=== PATIENT | male | born 1970 | race Caucasian/White ===

== ENCOUNTER 2016-08-21 10:11 | Emergency (ER) | payer OTHER ==
--- NOTE | 2016-09-01 10:04 | ED MED RECONCILIATION SUMMARY ---
Patient: CRYSTAL GONZALEZ Medication Reconciliation Report [facility] VisitID: [id number] [address] [place] [address] 46y, M Registration Date/Time: 08/21/2016 Weight: 90.7 kg Height/Length: 69 in. BMI: 29.5 ALLERGIES: No Known Drug Allergy The patient's Home Medications are listed below: NONE. The source(s) of the original Home Medication information: Not obtained. The following Medications were given to the patient in the Emergency Department: Acetaminophen [PO] PO 1000 mg, administered: 08/21/2016 2:56:00 PM NICOTINE [TOPICAL] Topical 21 mg, administered: 08/21/2016 8:41:00 PM Acetaminophen [PO] PO 1000 mg, administered: 08/21/2016 9:08:00 PM Toradol [IM] IM 60 mg, administered: 08/22/2016 2:22:00 AM The following Medications were prescribed to the patient: None.
--- NOTE | 2016-09-01 10:04 | ED MAR SUMMARY ---
..... Medication Administration Record [facility] [address] [place] [address] Patient: CRYSTAL GONZALEZ Visit ID: [id number] 46y, M Weight: 90.7 kg Height/Length: 69 in BMI: 29.5 ALLERGIES: No Known Drug Allergy Given 14:56 08/21/2016 Sheriff Butterfield R.N. Medication Administered: ACETAMINOPHEN [PO] (APAP), Dose: 1000 mg Tablets PO. Medication Ordered: Acetaminophen PO 1,000 mg (NOW). Given 20:41 08/21/2016 Sheriff Butterfield R.N. Medication Administered: NICOTINE [TOPICAL], Dose: 21 mg Topical. Medication Ordered: Nicotine Topical 21 mg (NOW). Given 21:08 08/21/2016 Sheriff Butterfield R.N. Medication Administered: ACETAMINOPHEN [PO] (APAP), Dose: 1000 mg PO. Medication Ordered: Acetaminophen PO 1,000 mg (NOW). Given 02:22 08/22/2016 Lizzeth Nayak R.N. Medication Administered: TORADOL [IM] (KETOROLAC TROMETHAMINE), Dose: 60 mg IM. Medication Ordered: Toradol IM 60 mg (NOW).
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
--- NOTE | 2016-09-01 10:04 | ED ORDER SUMMARY ---
..... Patient: CRYSTAL GONZALEZ OrderSheet [facility] VisitID: [id number] [address] [place] [address] 46y, M Registration Date/Time: 08/21/2016 ORDER SHEET Weight: 90.7 kg (stated) Allergies: No Known Drug Allergy GENERAL ORDERS: CBC w Diff Urgent (10:39 08/21/2016 Julissa GARZA) (Ack 10:51 LNations ER Tech1) (18:42 LNations ER Tech1) CMP Urgent (10:39 08/21/2016 Julissa GARZA) (Ack 10:51 LNations ER Tech1) (18:42 LNations ER Tech1) UA-Culture if indicated Urgent (10:08/21/2016 Julissa GARZA) (Ack 10:51 LNations ER Tech1) (18:42 LNations ER Tech1) Amylase Urgent (10:08/21/2016 Julissa GARZA) (Ack 10:52 LNations ER Tech1) (18:42 LNations ER Tech1) Lipase Urgent (10:39 08/21/2016 Julissa GARZA) (Ack 10:52 LNations ER Tech1) (18:42 LNations ER Tech1) Ethyl Alcohol Urgent (10:39 08/21/2016 Julissa GARZA) (Ack 10:52 LNations ER Tech1) (18:42 LNations ER Tech1) Urine Drug Screen Urgent (10:08/21/2016 Julissa GARZA) (Ack 10:52 LNations ER Tech1) (18:42 LNations ER Tech1) Acetaminophen Level Urgent (10:39 08/21/2016 Julissa GARZA) (Ack 10:53 LNations ER Tech1) (18:42 LNations ER Tech1) Salicylate Level Urgent (10:39 08/21/2016 Julissa GARZA) (Ack 10:53 LNations ER Tech1) (18:42 LNations ER Tech1) Suicide Precautions (10:39 08/21/2016 Julissa GARZA) (Ack 10:53 LNations ER Tech1) (18:42 LNations ER Tech1) EKG - ER Stat (10:42 08/21/2016 Julissa GARZA) (Ack 10:53 LNations ER Tech1) (10:53 LNations ER Tech1) CBC w Manual Diff Urgent (21:22 08/21/2016 AMcQuoid ER Tech1 verbal order read back to Julissa GARZA) (Ack 21:23 AMcQuoid ER Tech1) (23:10 AMcQuoid ER Tech1) MEDICATION ORDERS: Acetaminophen PO 1,000 mg (NOW) (14:30 08/21/2016 Julissa GARZA) (14:56 SSambou R.N.) Nicotine Topical 21 mg (NOW) (17:24 08/21/2016 Julissa GARZA) (Ack 17:41 JBoardley R.N.) (21:07 SSambou R.N.) Acetaminophen PO 1,000 mg (NOW) (21:07 08/21/2016 SSambou R.N. verbal order read back to Julissa AGRZA) (21:08 SSambou R.N.) Toradol IM 60 mg (NOW) (01:40 08/22/2016 Jian Mejias) (Ack 2:18 JSanders R.N.) (2:22 JSanders R.N.) IV FLUIDS: ORDER SHEET NOTES: [Electronically signed by Norm Beauchamp R.N. (07:08 08/24/2016)] [Electronically signed by Chelsea Tse MD (10:04 09/01/2016)] [Electronically locked/signed by Norm Beauchamp R.N. (07:08 08/24/2016)]
--- NOTE | 2016-09-01 10:04 | ED ORDER SUMMARY ---
..... Patient: CRYSTAL GONZALEZ OrderSheet [facility] VisitID: [id number] [address] [place] [address] 46y, M Registration Date/Time: 08/21/2016 ORDER SHEET Weight: 90.7 kg (stated) Allergies: No Known Drug Allergy GENERAL ORDERS: CBC w Diff Urgent (10:39 08/21/2016 Julissa GARZA) (Ack 10:51 LNations ER Tech1) (18:42 LNations ER Tech1) CMP Urgent (10:39 08/21/2016 Julissa GARZA) (Ack 10:51 LNations ER Tech1) (18:42 LNations ER Tech1) UA-Culture if indicated Urgent (10:08/21/2016 Julissa GARZA) (Ack 10:51 LNations ER Tech1) (18:42 LNations ER Tech1) Amylase Urgent (10:08/21/2016 Julissa GARZA) (Ack 10:52 LNations ER Tech1) (18:42 LNations ER Tech1) Lipase Urgent (10:39 08/21/2016 Julissa GARZA) (Ack 10:52 LNations ER Tech1) (18:42 LNations ER Tech1) Ethyl Alcohol Urgent (10:39 08/21/2016 Julissa GARZA) (Ack 10:52 LNations ER Tech1) (18:42 LNations ER Tech1) Urine Drug Screen Urgent (10:08/21/2016 Julissa GARZA) (Ack 10:52 LNations ER Tech1) (18:42 LNations ER Tech1) Acetaminophen Level Urgent (10:39 08/21/2016 Julissa GARZA) (Ack 10:53 LNations ER Tech1) (18:42 LNations ER Tech1) Salicylate Level Urgent (10:39 08/21/2016 Julissa GARZA) (Ack 10:53 LNations ER Tech1) (18:42 LNations ER Tech1) Suicide Precautions (10:39 08/21/2016 Julissa GARZA) (Ack 10:53 LNations ER Tech1) (18:42 LNations ER Tech1) EKG - ER Stat (10:42 08/21/2016 Julissa GARZA) (Ack 10:53 LNations ER Tech1) (10:53 LNations ER Tech1) CBC w Manual Diff Urgent (21:22 08/21/2016 AMcQuoid ER Tech1 verbal order read back to Julissa GARZA) (Ack 21:23 AMcQuoid ER Tech1) (23:10 AMcQuoid ER Tech1) MEDICATION ORDERS: Acetaminophen PO 1,000 mg (NOW) (14:30 08/21/2016 Julissa GARZA) (14:56 SSambou R.N.) Nicotine Topical 21 mg (NOW) (17:24 08/21/2016 Julissa GARZA) (Ack 17:41 JBoardley R.N.) (21:07 SSambou R.N.) Acetaminophen PO 1,000 mg (NOW) (21:07 08/21/2016 SSambou R.N. verbal order read back to Julissa GARZA) (21:08 SSambou R.N.) Toradol IM 60 mg (NOW) (01:40 08/22/2016 Jian Mejias) (Ack 2:18 JSanders R.N.) (2:22 JSanders R.N.) IV FLUIDS: ORDER SHEET NOTES: [Electronically signed by Norm Beauchamp R.N. (07:08 08/24/2016)] [Electronically signed by Chelsea Tse MD (10:04 09/01/2016)] [Electronically locked/signed by Norm Beauchamp R.N. (07:08 08/24/2016)]
--- NOTE | 2016-09-01 10:04 | ED DISCHARGE INSTRUCTIONS ---
Patient: CRYSTAL GONZALEZ General Instructions [facility] VisitID: [id number] [place] [address] 46y, M Registration Date/Time: 08/21/2016 Leukocytosis (likely due to de-margination). (Electronically signed by Chelsea Tse MD 09/01/2016 10:04)
--- NOTE | 2016-09-01 10:04 | ED NURSING NOTES ---
Clinical Report - Nurses [facility] [place] [address] 08/21/2016 10:14 Patient: CRYSTAL GONZALEZ TRIAGE Triage time 10:43. Chief Complaint: SUICIDAL THOUGHTS. --10:50 Sheriff Butterfield R.N. 10:33 08/21/16. BP: 115/62. HR: 79. RR: 21. O2 saturation: 98%. Temp: 98.4 F. Pain level now: 07/10. --10:50 Sheriff Butterfield R.N. clothes in LOCKER #5 LOCK #3. --11:43 Oksana Harp R.N. Weight: 90.7 kg stated. Height/Length: 69 inches Per Patient. BMI: 29.5. --10:34 Sheriff Butterfield R.N. Medications None. --10:48 Sheriff Butterfield R.N. Allergies No Known Drug Allergy. --10:48 Sheriff Butterfield R.N. History Arrived by private vehicle. Historian: patient. Unaccompanied. Onset. (6 months ago). ( "I feel like to taking my like when I get the pain. A lot going on in my life. I feel like jumping in front of a moving truck." Got the feeling of jumping in front a moving truck this morning.). SURGERY HX: No history of previous surgery. SOCIAL HX: Heavy tobacco smoker- less than 1 pack per day. Alcohol use; consumes liquor daily. No drug use. FALL RISK ASSESSMENT: Fall risk assessment completed. No fall risk identified. NUTRITIONAL RISK ASSESSMENT: The nutritional risk assessment revealed no deficiencies. FUNCTIONAL ASSESSMENT: Functional assessment: no impairments noted. LEARNING NEEDS ASSESSMENT: The learning needs assessment revealed no barriers. SKIN INTEGRITY ASSESSMENT: Skin integrity risk assessment completed. No skin integrity risk identified. --10:50 Sheriff Butterfield R.N. PROBLEMS: Depression. --10:49 Sheriff Butterfield R.N. Interventions ID band on patient. --10:50 Sheriff Butterfield R.N. PHYSICAL ASSESSMENT Ambulatory to room. Patient gowned. GENERAL / NEURO / PSYCH: Alert. Oriented X 4. Appears in no acute distress. Speech within normal limits. Affect appears normal. Patient appears calm and cooperative. Good eye contact. Patient appears well-nourished and neat and clean. RESPIRATORY: Respirations not labored. CVS: Capillary refill less than 2 seconds. GI / : Abdomen soft. SKIN: Skin intact. Skin is warm and dry. Skin color is within normal limits. --10:51 Sheriff Butterfield R.N. NURSING PROGRESS NOTES Head of bed elevated. Three patient identifiers checked. Call light placed in reach. Side rails up x 2. Bed placed in lowest position. Brakes of bed on. --10:51 Sheriff Butterfield R.N. EKG time: (1040). EKG was ordered, performed by a tech and shown to the ED physician. --10:57 Hafsa Starr, ER Tech1 11:00. ( Pt breathalyzed, 0.00.). --12:26 Omar Esteban, ER Tech1 14:56 08/21/2016 Acetaminophen (APAP) PO Tablets 1000 mg given. Allergies verified and confirmed 5 rights. --14:56 Sheriff Butterfield R.N. 13:15 08/21/16. BP: 108/65. HR: 74. RR: 18. O2 saturation: 96%. Temp: 98.2 F. --15:56 Sheriff Butterfield R.N. 15:56 08/21/16. BP: 116/63. HR: 72. RR: 20. O2 saturation: 95%. Temp: 98.6 F. --15:57 Sheriff Butterfield R.N. The patient is calm and resting quietly. Overall patient status is the same. GENERAL / NEURO / PSYCH: Alert. Oriented X 4. Patient appears calm and cooperative. Affect appears normal. RESPIRATORY: No respiratory distress. SKIN: Skin is warm and dry. Skin color within normal limits. --15:57 Sheriff Butterfield R.N. 18:52 08/21/16. BP: 117/71. HR: 68. RR: 20. O2 saturation: 95%. Temp: 98.0 F. --18:52 Omar Esteban, ER Tech1 20:41 08/21/2016 NICOTINE Topical 21 mg. Applied to the left upper arm. Allergies verified and confirmed 5 rights. --21:07 Sheriff Butterfield R.N. 21:08 08/21/2016 Acetaminophen (APAP) PO 1000 mg given. Allergies verified and confirmed 5 rights. --21:08 Sheriff Butterfield R.N. The patient reports no complaints and he is calm and resting quietly. Overall patient status is the same. ( Patient remains alert and oriented x 4.). --22:03 Sheriff Butterfield R.N. 22:00 Per [facility] patient is voluntary. PAT roll wrapper to return to continue evaluation. --22:08 Tina Knutson ER Tech1 20:48 08/21/16. BP: 116/76 (regular adult cuff) taken on the left arm, via an automated monitor, while lying. HR: 72. RR: 16. O2 saturation: 95% on room air. Temp: 98.9 F. --22:13 Juliane Alonzo 21:00. ( At patient bedside to bring 2 sandwiches and ice water as per patient's request. DMHP at bedside.). --23:02 Juliane Alonzo 23:08 PAT roll wrapper called; states that there are not any voluntary beds available tonight and suggests that the patient be re-evaluated by PAT tomorrow. --23:09 Tina Knutson ER Tech1 Care transferred and report received (CITLALI Montero). --00:50 Lizzeth Nayak R.N. 00:58 08/22/16. ( Checked in with patient, he is awake and doing fine, offered fluids or something to eat and warm blanket and he declined. Patient very polite and cooperative.). --00:58 Lizzeth Nayak R.N. 02:22 08/22/2016 Toradol (Ketorolac Tromethamine) IM 60 mg given. Given in the left anterior lateral thigh. Allergies verified and confirmed 5 rights. --02:22 Lizzeth Nayak R.N. 02:47 08/22/2016 Toradol IM Response: no adverse reaction pain is gone now. Symptoms have improved the patient feels better. --02:47 Lizzeth Nayak R.N. 04:22 08/22/16. GENERAL / NEURO / PSYCH: Alert. Oriented X 4. Patient appears calm and cooperative. RESPIRATORY: No respiratory distress. SKIN: Skin is warm and dry. Skin color within normal limits. ( Patient offered comfort measures, he declined). --04:22 Lizzeth Nayak R.N. 06:08 08/22/16. RESPIRATORY: No respiratory distress. SKIN: Skin is warm and dry. Skin color within normal limits. ( Patient sleeping). --06:08 Lizzeth Nayak R.N. 06:32 08/22/16. ( Patient given breakfast tray). --06:32 Lizzeth Nayak R.N. 06:35 08/22/16. GENERAL / NEURO / PSYCH: Alert. Oriented X 4. Patient appears calm and cooperative. --06:35 Lizzeth Nayak R.N. 06:34 08/22/16. BP: 111/73 (regular adult cuff) taken on the left arm, while sitting. HR: 74. RR: 18. O2 saturation: 98% on room air. Temp: 97.8 F (oral). Pain level now: 0/10. --06:35 Lizzeth Nayak R.N. ( At patient's bedside bringing him breakfast and water. Patient was appreciative and said he did not need anything else at the time. Suicide precautions observed.). --06:39 [facility] transferred and report given (CITLALI Zheng). --07:23 Lizzeth Nayak R.N. 09:24 08/22/16. The patient is calm and resting quietly. Overall patient status is the same- he states feels the same (spoke to [place] person on the phone, [facility] is also looking at his chart considering placement at this time). GENERAL / NEURO / PSYCH: Alert. Oriented X 4. Patient appears calm and cooperative. RESPIRATORY: No respiratory distress. SKIN: Skin is warm and dry. --09:24 Oksana Harp R.N. 09:20 08/22/16. BP: 124/74. HR: 75. RR: 16. O2 saturation: 93% on room air. Temp: 97.5 F. Pain level now: 0/10. --09:24 Oksana Harp R.N. ( Spoke with [facility] intake reviewed case with them and received a call that will be accepting patient and that patient needs to be transported via ambulance to their facility. Report given to Holly at [facility]. Patient's belongings given to him and patient states is missing his phone equal opportunity officer which is dark vallecillo. Told patient I will be looking for this and place with a personal belongings sticker if found.). --12:02 Norm Beauchamp R.N. DISPOSITION / DISCHARGE 11:19 08/22/16. BP: 114/71. HR: 73. RR: 18. O2 saturation: 99%. Temp: 98.0 F. --11:19 Radha Duron Condition at departure: improved. Transferred ([facility]). --12:03 Norm Beauchamp R.N. Departure time: 12:Aug 22 2016. ( report given to ambulance patient transferred.). --12:03 Norm Beauchamp R.N. Locked/Released at 08/24/2016 7:08 by Norm Beauchamp R.N.
--- NOTE | 2016-09-01 10:04 | ED DISCHARGE INSTRUCTIONS ---
Patient: CRYSTAL GONZALEZ General Instructions [facility] VisitID: [id number] [address] [place] [address] 46y, M Registration Date/Time: 08/21/2016 Leukocytosis (likely due to de-margination). (Electronically signed by Chelsea Tse MD 09/01/2016 10:04)
--- NOTE | 2016-09-01 10:04 | ED NURSING NOTES ---
Clinical Report - Nurses [facility] [place] [address] 08/21/2016 10:14 Patient: CRYSTAL GONZALEZ TRIAGE Triage time 10:43. Chief Complaint: SUICIDAL THOUGHTS. --10:50 Sheriff Butterfield R.N. 10:33 08/21/16. BP: 115/62. HR: 79. RR: 21. O2 saturation: 98%. Temp: 98.4 F. Pain level now: 07/10. --10:50 Sheriff Butterfield R.N. clothes in LOCKER #5 LOCK #3. --11:43 Oksana Harp R.N. Weight: 90.7 kg stated. Height/Length: 69 inches Per Patient. BMI: 29.5. --10:34 Sheriff Butterfield R.N. Medications None. --10:48 Sheriff Butterfield R.N. Allergies No Known Drug Allergy. --10:48 Sheriff Butterfield R.N. History Arrived by private vehicle. Historian: patient. Unaccompanied. Onset. (6 months ago). ( "I feel like to taking my like when I get the pain. A lot going on in my life. I feel like jumping in front of a moving truck." Got the feeling of jumping in front a moving truck this morning.). SURGERY HX: No history of previous surgery. SOCIAL HX: Heavy tobacco smoker- less than 1 pack per day. Alcohol use; consumes liquor daily. No drug use. FALL RISK ASSESSMENT: Fall risk assessment completed. No fall risk identified. NUTRITIONAL RISK ASSESSMENT: The nutritional risk assessment revealed no deficiencies. FUNCTIONAL ASSESSMENT: Functional assessment: no impairments noted. LEARNING NEEDS ASSESSMENT: The learning needs assessment revealed no barriers. SKIN INTEGRITY ASSESSMENT: Skin integrity risk assessment completed. No skin integrity risk identified. --10:50 Sheriff Butterfield R.N. PROBLEMS: Depression. --10:49 Sheriff Butterfield R.N. Interventions ID band on patient. --10:50 Sheriff Butterfield R.N. PHYSICAL ASSESSMENT Ambulatory to room. Patient gowned. GENERAL / NEURO / PSYCH: Alert. Oriented X 4. Appears in no acute distress. Speech within normal limits. Affect appears normal. Patient appears calm and cooperative. Good eye contact. Patient appears well-nourished and neat and clean. RESPIRATORY: Respirations not labored. CVS: Capillary refill less than 2 seconds. GI / : Abdomen soft. SKIN: Skin intact. Skin is warm and dry. Skin color is within normal limits. --10:51 Sheriff Butterfield R.N. NURSING PROGRESS NOTES Head of bed elevated. Three patient identifiers checked. Call light placed in reach. Side rails up x 2. Bed placed in lowest position. Brakes of bed on. --10:51 Sheriff Butterfield R.N. EKG time: (1040). EKG was ordered, performed by a tech and shown to the ED physician. --10:57 Hafsa Starr, ER Tech1 11:00. ( Pt breathalyzed, 0.00.). --12:26 Omar Esteban, ER Tech1 14:56 08/21/2016 Acetaminophen (APAP) PO Tablets 1000 mg given. Allergies verified and confirmed 5 rights. --14:56 Sheriff Butterfield R.N. 13:15 08/21/16. BP: 108/65. HR: 74. RR: 18. O2 saturation: 96%. Temp: 98.2 F. --15:56 Sheriff Butterfield R.N. 15:56 08/21/16. BP: 116/63. HR: 72. RR: 20. O2 saturation: 95%. Temp: 98.6 F. --15:57 Sheriff Butterfield R.N. The patient is calm and resting quietly. Overall patient status is the same. GENERAL / NEURO / PSYCH: Alert. Oriented X 4. Patient appears calm and cooperative. Affect appears normal. RESPIRATORY: No respiratory distress. SKIN: Skin is warm and dry. Skin color within normal limits. --15:57 Sheriff Butterfield R.N. 18:52 08/21/16. BP: 117/71. HR: 68. RR: 20. O2 saturation: 95%. Temp: 98.0 F. --18:52 Omar Esteban, ER Tech1 20:41 08/21/2016 NICOTINE Topical 21 mg. Applied to the left upper arm. Allergies verified and confirmed 5 rights. --21:07 Sheriff Butterfield R.N. 21:08 08/21/2016 Acetaminophen (APAP) PO 1000 mg given. Allergies verified and confirmed 5 rights. --21:08 Sheriff Butterfield R.N. The patient reports no complaints and he is calm and resting quietly. Overall patient status is the same. ( Patient remains alert and oriented x 4.). --22:03 Sheriff Butterfield R.N. 22:00 Per [facility] patient is voluntary. PAT sleep scientist to return to continue evaluation. --22:08 Tina Knutson ER Tech1 20:48 08/21/16. BP: 116/76 (regular adult cuff) taken on the left arm, via an automated monitor, while lying. HR: 72. RR: 16. O2 saturation: 95% on room air. Temp: 98.9 F. --22:13 Juliane Alonzo 21:00. ( At patient bedside to bring 2 sandwiches and ice water as per patient's request. DMHP at bedside.). --23:02 Juliane Alonzo 23:08 PAT sleep scientist called; states that there are not any voluntary beds available tonight and suggests that the patient be re-evaluated by PAT tomorrow. --23:09 Tina Knutson ER Tech1 Care transferred and report received (CITLALI Montero). --00:50 Lizzeth Nayak R.N. 00:58 08/22/16. ( Checked in with patient, he is awake and doing fine, offered fluids or something to eat and warm blanket and he declined. Patient very polite and cooperative.). --00:58 Lizzeth Nayak R.N. 02:22 08/22/2016 Toradol (Ketorolac Tromethamine) IM 60 mg given. Given in the left anterior lateral thigh. Allergies verified and confirmed 5 rights. --02:22 Lizzeth Nayak R.N. 02:47 08/22/2016 Toradol IM Response: no adverse reaction pain is gone now. Symptoms have improved the patient feels better. --02:47 Lizzeth Nayak R.N. 04:22 08/22/16. GENERAL / NEURO / PSYCH: Alert. Oriented X 4. Patient appears calm and cooperative. RESPIRATORY: No respiratory distress. SKIN: Skin is warm and dry. Skin color within normal limits. ( Patient offered comfort measures, he declined). --04:22 Lizzeth Nayak R.N. 06:08 08/22/16. RESPIRATORY: No respiratory distress. SKIN: Skin is warm and dry. Skin color within normal limits. ( Patient sleeping). --06:08 Lizzeth Nayak R.N. 06:32 08/22/16. ( Patient given breakfast tray). --06:32 Lizzeth Nayak R.N. 06:35 08/22/16. GENERAL / NEURO / PSYCH: Alert. Oriented X 4. Patient appears calm and cooperative. --06:35 Lizzeth Nayak R.N. 06:34 08/22/16. BP: 111/73 (regular adult cuff) taken on the left arm, while sitting. HR: 74. RR: 18. O2 saturation: 98% on room air. Temp: 97.8 F (oral). Pain level now: 0/10. --06:35 Lizzeth Nayak R.N. ( At patient's bedside bringing him breakfast and water. Patient was appreciative and said he did not need anything else at the time. Suicide precautions observed.). --06:39 [facility] transferred and report given (CITLALI Zheng). --07:23 Lizzeth Nayak R.N. 09:24 08/22/16. The patient is calm and resting quietly. Overall patient status is the same- he states feels the same (spoke to [place] person on the phone, [facility] is also looking at his chart considering placement at this time). GENERAL / NEURO / PSYCH: Alert. Oriented X 4. Patient appears calm and cooperative. RESPIRATORY: No respiratory distress. SKIN: Skin is warm and dry. --09:24 Oksana Harp R.N. 09:20 08/22/16. BP: 124/74. HR: 75. RR: 16. O2 saturation: 93% on room air. Temp: 97.5 F. Pain level now: 0/10. --09:24 Oksana Harp R.N. ( Spoke with [facility] intake reviewed case with them and received a call that will be accepting patient and that patient needs to be transported via ambulance to their facility. Report given to Holly at [facility]. Patient's belongings given to him and patient states is missing his phone tool and gauge inspector which is dark vallecillo. Told patient I will be looking for this and place with a personal belongings sticker if found.). --12:02 Norm Beauchamp R.N. DISPOSITION / DISCHARGE 11:19 08/22/16. BP: 114/71. HR: 73. RR: 18. O2 saturation: 99%. Temp: 98.0 F. --11:19 Radha Duron Condition at departure: improved. Transferred ([facility]). --12:03 Norm Beauchamp R.N. Departure time: 12:Aug 22 2016. ( report given to ambulance patient transferred.). --12:03 Norm Beauchamp R.N. Locked/Released at 08/24/2016 7:08 by Norm Beauchamp R.N.
--- NOTE | 2016-09-01 10:04 | ED MED RECONCILIATION SUMMARY ---
Patient: CRYSTAL GONZALEZ Medication Reconciliation Report [facility] VisitID: [id number] [address] [place] [address] 46y, M Registration Date/Time: 08/21/2016 Weight: 90.7 kg Height/Length: 69 in. BMI: 29.5 ALLERGIES: No Known Drug Allergy The patient's Home Medications are listed below: NONE. The source(s) of the original Home Medication information: Not obtained. The following Medications were given to the patient in the Emergency Department: Acetaminophen [PO] PO 1000 mg, administered: 08/21/2016 2:56:00 PM NICOTINE [TOPICAL] Topical 21 mg, administered: 08/21/2016 8:41:00 PM Acetaminophen [PO] PO 1000 mg, administered: 08/21/2016 9:08:00 PM Toradol [IM] IM 60 mg, administered: 08/22/2016 2:22:00 AM The following Medications were prescribed to the patient: None.
--- NOTE | 2016-09-01 10:04 | ED MAR SUMMARY ---
..... Medication Administration Record [facility] [address] [place] [address] Patient: CRYSTAL GONZALEZ Visit ID: [id number] 46y, M Weight: 90.7 kg Height/Length: 69 in BMI: 29.5 ALLERGIES: No Known Drug Allergy Given 14:56 08/21/2016 Sheriff Butterfield R.N. Medication Administered: ACETAMINOPHEN [PO] (APAP), Dose: 1000 mg Tablets PO. Medication Ordered: Acetaminophen PO 1,000 mg (NOW). Given 20:41 08/21/2016 Sheriff Butterfield R.N. Medication Administered: NICOTINE [TOPICAL], Dose: 21 mg Topical. Medication Ordered: Nicotine Topical 21 mg (NOW). Given 21:08 08/21/2016 Sheriff Butterfield R.N. Medication Administered: ACETAMINOPHEN [PO] (APAP), Dose: 1000 mg PO. Medication Ordered: Acetaminophen PO 1,000 mg (NOW). Given 02:22 08/22/2016 Lizzeth Nayak R.N. Medication Administered: TORADOL [IM] (KETOROLAC TROMETHAMINE), Dose: 60 mg IM. Medication Ordered: Toradol IM 60 mg (NOW).
== END 2016-08-21 12:00 | disposition home or self-care (01) ==
LOC: ED SRH 10:11 → EDSEX 10:14 → ED SRH 12:00
DX: F32.9 Major depressive disorder, single episode, unspecified (principal); R45.851 Suicidal ideations; D72.829 Elevated white blood cell count, unspecified; Z59.0 Homelessness
CPT/HCPCS: 90004; 90074; 90100; 91295; 92010; 92235; 92530; 92760; 92761; 92762; 92763; 92764; 92765; 92766; 92767; 92780; 95059; 95061; 97000